=== PATIENT | female | born 1950 | race Caucasian/White ===

== ENCOUNTER 2017-07-01 14:42 | Emergency (ER) | payer OTHER ==
[~2017-07-01] VITALS: Ht 154.9 cm; Wt 58.0 kg
[~2017-07-01 14:42] MED LIST: ESTR1TAB12 PO; LISI10TA PO; XANA0.5T PO
[2017-07-01 14:45] VITALS: BP 100/52; PULSE 73; RESP 18; TEMP 97.4; O2SAT 99
== END 2017-07-01 15:47 | disposition left against medical advice (07) ==
LOC: PHED 14:42
DX: Z53.9 Procedure and treatment not carried out, unspecified reason (principal)
CPT/HCPCS: 99281